=== PATIENT | male | born 2000 | race Caucasian/White ===

== ENCOUNTER 2025-04-20 09:10 | Emergency (ER) | payer OTHER, SELFPAY ==
--- NOTE | 2025-04-20 09:25 | ED_ITS ---
HPI - URI/Sore Throat General Chief Complaint: Upper Respiratory Infection Stated Complaint: Sore Throat Time Seen by Provider: 04/20/25 09:26 Source: patient and RN notes reviewed Mode of arrival: ambulatory Limitations: no limitations History of Present Illness HPI Narrative: 24-year-old male presents to the [facility] with complaints of a sore throat since Sunday, 2 days. Has been taking ibuprofen with no relief. Patient denies any other symptoms Onset (ago): day(s) (2) Treatments prior to arrival: ibuprofen Related Data Home Medications ?Medication ?Instructions ?Recorded ?Confirmed ?Last Taken ?Type No Home Medications 04/20/25 04/20/25 U nknown History Allergies Allergy/AdvReac Type Severity Reaction Status Date / Time No Known Allergies Allergy Verified 04/20/25 09:18 Review of Systems Review of Systems: All systems reviewed & are unremarkable except as noted in HPI and below Constitutional: Constitutional: Reports no additional constitutional complaints ENT: Reports as per HPI and Reports sore throat Cardiovascular: Cardiovascular: Reports no additional cardiovascular complaints, Denies chest pain and Denies dyspnea Respiratory: Respiratory: Reports no additional respiratory complaints, Denies chest congestion, Denies cough and Denies dyspnea Musculoskeletal: Musculoskeletal: Reports no additional musculoskeletal complaints Integumentary/Breasts: Skin/Breast: Reports system reviewed and no additional complaints, except as docu PMFSH Comments At the time of my signature, I reviewed and agree with the nursing past medical, surgical, social, and family history. There is no relevant family history pertinent to the patient complaint. Exam Const: General: cooperative, healthy appearing, comfortable, no acute distress, well developed, alert and well nourished Nutritional Appearance: well nourished Orientation/consciousness: patient oriented x3 Limitations: no limitations HENMT: Head: normal to inspection Ears: hearing grossly normal bilaterally, external ears normal, TM's normal bilaterally, EAC's normal, mastoids normal and no periauricular adenopathy Face/Nose/Sinus: Normal external nose present Face and sinus: normal facial exam Mouth: Yes Normal oral and palatal mucosa present, Yes lip normal, Yes tongue normal and Yes moist mucous membranes Throat: abnormal tonsil on the right erythema and hypertrophy 4+ and uvula laterally displaced Eyes: General: appearance normal, both eyes and all related structures Alignment and Position: alignment normal Neck: Neck: normal visual inspection, full ROM, no meningeal signs and lymphadenopathy (Right submandibular) Chest: Chest palpation & inspection: normal inspection of the chest Resp: Effort & Inspection: normal respiratory effort and able to speak in complete sentences Auscultation: clear to auscultation bilaterally, no crackles, no rales, no rhonchi and no wheezes Cardio: Rate: regular rate Skin: General skin exam: normal color and no rashes or lesions noted Neuro: General: patient oriented x3, gait normal, moves all extremities and no meningeal signs Cognition (Neuro): normal cognition Speech: normal speech Gait exam (Neuro): Normal gait present Extrem: General: normal to inspection, full ROM, capillary refill normal and normal gait Psych: Appearance: grossly normal and well kempt Mental Status: mental status grossly normal Speech and movement: Normal speech and movement present and Clear speech present Affect: normal affect Attitude: cooperative Course Course Level of Care: Express Care Visit Vital Signs Vital signs: Vital Signs Temperature 100.3 F H 04/20/25 09:27 Pulse Rate 105 H 04/20/25 09:27 Respiratory Rate 16 04/20/25 09:27 Blood Pressure 130/75 04/20/25 09:27 Pulse Oximetry 99 04/20/25 09:27 Oxygen Delivery Room Air 04/20/25 09:27 Temperature 100.3 F H 04/20/25 09:27 Pulse Rate 105 H 04/20/25 09:27 Respiratory Rate 16 04/20/25 09:27 Blood Pressure 130/75 04/20/25 09:27 Pulse Oximetry 99 04/20/25 09:27 Oxygen Delivery Room Air 04/20/25 09:27 Reviewed Transfer Transfered to: [place] Transportation: Other (POV) Transfer rationale: Patient with concern for a right peritonsillar abscess, sending for higher level of care Accepting physician: Dr. Bae MDM - URI/Sore Throat MDM Narrative Medical decision making narrative: Patient with a uvular shift, enlarged right tonsil. Patient is febrile 100.3, tachycardic at 1:05 a.m.. Patient with increasing pain and lymphadenopathy of the right side Strep test negative Sending for higher level of care Discharge instructions reviewed with patient, as well as provided in writing per nursing staff. The instructions also include specific and strict return/GO TO THE ER as well as f/u information. All questions have been answered, and the patient deny any further questions with discharge and discharge plan. Some parts of this dictation were generated by voice recognition software and may contain typographical and/or grammatical inaccuracies. Differential Diagnosis Differential diagnosis: Likely upper respiratory infection, sinusitis, pharyngitis and other (Strep, peritonsillar abscess, mono) Lab Data Labs: Lab Results 04/20/25 Range/Units 09:24 POC Grp A Strep Screen Negative (Negative) Reviewed Critical Care Time Critical Care Time Critical Care Time: No Discharge Plan Discharge Clinical Impression: Tonsillar abscess Patient Disposition: Acute Care Hospital Condition: Stable Instructions: Antibiotic Form Patient Language: Romanian Prescriptions: No Action No Home Medications Follow-up/Referrals: PHYSICIAN,REPULPING SUPERVISOR [Primary Care Provider, Internal Medicine]
[2025-04-20 09:27] VITALS: BP 130/75; PULSE 105; RESP 16; TEMP 37.9; O2SAT 99
[2025-04-20 09:50] LABS: EDSTREPNEGPOS1 Negative (Negative)
== END 2025-04-20 09:42 | disposition short-term general hospital (02) ==
PROVIDERS: Emergency Provider Nurse Practitioner
DX: J36 Peritonsillar abscess (principal)
CPT/HCPCS: 87081; 87880; 99213; G0463

== ENCOUNTER 2025-04-20 10:20 | Emergency (ER) | payer OTHER, SELFPAY ==
[2025-04-20] VITALS (10 sets, daily range): BP systolic 119–137; BP diastolic 76–78; PULSE 101–110; RESP 16–20; TEMP 37.4; O2SAT 97–100
--- NOTE | ~2025-04-20 | CT_ITS ---
EXAMINATION: CT soft tissue neck w con DATE: 04/20/2025 12:04 INDICATION: Tonsil mass. Assess for abscess. TECHNIQUE: Computed tomography (CT) of the neck was performed with 75 mL Omnipaque-350 intravenous contrast. Automated exposure control and iterative reconstruction technique were employed. The dose-length product was 480.24 mGy-cm. COMPARISON: None FINDINGS: There is relatively symmetric mild increased prominence of the bilateral parapharyngeal tonsils. No peripherally enhancing abscess. Mild enlargement of bilateral level 2 jugular chain lymph nodes measuring up to 1.3 similar on the right and 1.1 cm on the left and asymmetric mild enlargement of few right posterior cervical chain lymph nodes which remains within normal limits in size measuring up to 1.0 cm in maximal short axis diameter and which are likely reactive. Retropharyngeal soft tissues are unremarkable. Normal epiglottis and aryepiglottic folds. Orbits are normal. Mild mucosal thickening the bilateral ethmoid sinuses. Mastoid air cells and middle ear cavities are clear. Submandibular and parotid glands are normal and symmetric. Thyroid gland is unremarkable. No masses identified. The vasculature is patent and normal in caliber. Superior mediastinum is unremarkable. Lung apices are normal. Bones are unremarkable aside from likely positional mild straightening of the normal cervical lordosis. IMPRESSION: 1. Mild enlargement of the bilateral parapharyngeal tonsils which could be seen with tonsillitis. No discrete abscess. 2. Mild bilateral level 2 jugular chain and right posterior cervical chain lymphadenopathy which is likely reactive. Reviewed, dictated and finalized at location A. IMPRESSION: 1. Mild enlargement of the bilateral parapharyngeal tonsils which could be seen with tonsillitis. No discrete abscess. 2. Mild bilateral level 2 jugular chain and right posterior cervical chain lymp hadenopathy which is likely reactive.
[2025-04-20 11:28] LABS: Hematocrit 47.4 % (42.0-52.0); Hemoglobin 16.1 g/dL (14.0-18.0); Immature Granulocyte Percent A 0.5 % (0-0.5); Lymphocytes Absolute Auto 0.81 K/mm3 (0.9-3.2); Mean Corpuscular HGB Conc 34.0 g/dl (32-36); Mean Corpuscular Hemoglobin 32.3 pg (26-34); Mean Corpuscular Volume 95.2 fl (80-100); Nucleated Red Blood Cells Absolute Auto 0.000 K/mm3 (0.0-0.012); Nucleated Red Blood Cells Perc 0.0 % (0.0-0.2); Platelet Count Result 227 k/mm3 (150-375); Red Blood Count 4.98 M/mm3 (4.6-6.20); White Blood Count 11.8 K/mm3 (4.5-10.0)
--- NOTE | 2025-04-20 11:30 | ED_ITS ---
HPI - General Adult General Chief complaint: Recheck/Abnormal Lab/Rx Stated complaint: sent from urgent care; possible R tonsil abscess Time Seen by Provider: 04/20/25 11:04 History of Present Illness HPI narrative: 24-year-old male he lives in [place] no history presents ER complaining of right- sided throat pain for 3 days. Patient was seen in urgent care earlier today instructed to come to the ER for further evaluation over concerns or peritonsillar abscess. Patient denies fever. Denies shortness of breath or difficulty breathing. Endorses difficulty swallowing. Related Data Allergies Allergy/AdvReac Type Severity Reaction Status Date / Time No Known Allergies Allergy Verified 04/20/25 10:43 Review of Systems 2 Review of Systems: All systems reviewed & are unremarkable except as noted in HPI and below Exam 2 Const: General: healthy appearing, no acute distress, alert and ill appearing Nutritional Appearance: well nourished Orientation/consciousness: patient oriented x3 Limitations: no limitations HENMT: Head: normal to inspection Ears: external ears normal Mouth: Yes Normal oral and palatal mucosa present Other: Erythematous right tonsil with noted exudate Eyes: Conjunctivae: conjunctivae normal Pupils: Equal, round and reactive pupils present EOM: EOMs intact bilaterally Direct Ophthalmoscopy: no photophobia Resp: Effort & Inspection: normal respiratory effort Auscultation: clear to auscultation bilaterally Cardio: Rate: regular rate Rhythm: regular rhythm Skin: General skin exam: normal color Neuro: General: patient oriented x3, moves all extremities and CN's II-XI intact bilaterally Speech: normal speech Gait exam (Neuro): Normal gait present Extrem: General: normal to inspection Psych: Mental Status: mental status grossly normal Affect: normal affect Attitude: cooperative Course Vital Signs Vital signs: Vital Signs Temperature 37.4 C 04/20/25 10:40 Pulse Rate 101 H 04/20/25 10:40 Respiratory Rate 16 04/20/25 10:40 Blood Pressure 137/77 04/20/25 10:40 Pulse Oximetry 99 04/20/25 10:40 Oxygen Delivery Room Air 04/20/25 10:40 Temperature 37.4 C 04/20/25 10:40 Pulse Rate 110 H 04/20/25 11:28 Respiratory Rate 20 04/20/25 11:28 Blood Pressure 134/76 04/20/25 11:11 Pulse Oximetry 99 04/20/25 11:28 Oxygen Delivery Room Air 04/20/25 11:28 Medical Decision Making MDM Narrative Medical decision making narrative: In summary: 24-year-old male present to the ER complaining of a unilateral tonsillar swelling with exudate. Patient was seen at urgent care prior to arrival instructed to come to the ER for further evaluation. CT scan shows no evidence of peritonsillar abscess. WBC 11.8, CRP 2.7. Patient was given 1 dose of ceftriaxone in dexamethasone here in the ER. Differential diagnosis includes GAS, mono, viral illness, peritonsillar abscess. Findings are consistent with tonsillitis. Patient was discharged home with Augmentin and prednisone.. Vital Signs Vital Signs: Vital Signs Temperature 37.4 C 04/20/25 10:40 Pulse Rate 101 H 04/20/25 10:40 Respiratory Rate 16 04/20/25 10:40 Blood Pressure 137/77 04/20/25 10:40 Pulse Oximetry 99 04/20/25 10:40 Oxygen Delivery Room Air 04/20/25 10:40 Temperature 37.4 C 04/20/25 10:40 Pulse Rate 110 H 04/20/25 11:28 Respiratory Rate 20 04/20/25 11:28 Blood Pressure 134/76 04/20/25 11:11 Pulse Oximetry 99 04/20/25 11:28 Oxygen Delivery Room Air 04/20/25 11:28 Lab Data 04/20/25 11:20 04/20/25 11:34 Labs: Lab Results 04/20/25 04/20/25 Range/Units 11:20 11:34 WBC 11.8 H (4.5-10.0) K/mm3 RBC 4.98 (4.6-6.20) M/mm3 Hgb 16.1 (14.0-18.0) g/dL Hct 47.4 (42.0-52.0) % MCV 95.2 (80-100) fl MCH 32.3 (26-34) pg MCHC 34.0 (32-36) g/dl RDW 12.7 (11.5-14.5) % Plt Count 227 (150-375) k/mm3 MPV 8.4 (7.4-10.4) fl Immature Gran % (Auto) 0.5 (0-0.5) % Neut % (Auto) 80.7 H (45.5-73.1) % Lymph % (Auto) 6.9 L (18.3-44.2) % [place] % (Auto) 11.6 H (2.6-8.5) % Eos % (Auto) 0.0 (0-4.4) % Baso % (Auto) 0.3 (0.2-1.2) % Lymph # (Auto) 0.81 L (0.9-3.2) K/mm3 [place] # (Auto) 1.4 H (0.1-0.6) K/mm3 Eos # (Auto) 0.0 (0-0.3) K/mm3 Baso # (Auto) 0.0 (0.0-0.1) K/mm3 Abs Immat Gran (auto) 0.06 H (0.00-0.031) K/mm3 Absolute Neuts (auto) 9.5 H (1.3-6.7) K/mm3 Absolute Nucleated RBC 0.000 (0.0-0.012) K/mm3 Nucleated RBC % 0.0 (0.0-0.2) % ESR 7 (0-20) mm/hr Sodium 137 (137-145) mmol/L Potassium 4.2 (3.4-5.0) mmol/L Chloride 102 (98-107) mmol/L Carbon Dioxide 24 (22-30) mmol/L Anion Gap 11 (4-12) mmol/L BUN 7 L (9-20) mg/dL Creatinine 0.73 0.80 (0.7-1.3) mg/dL Estim Creat Clear Calc 141 129 ml/min Estimated GFR > 60 > 60 (59 - ) Glucose 117 H (65-110) mg/dL Lactic Acid 1.2 (0.7-2.0) mmol/L Calcium 9.9 (8.4-10.2) mg/dL Total Bilirubin 0.5 (0.2-1.3) mg/dL AST 24 (17-59) U/L ALT 17 (6-50) U/L Alkaline Phosphatase 93 (38-126) U/L C-Reactive Protein 2.7 H (<1.0) mg/dL Total Protein 7.9 (6.3-8.2) g/dL Albumin 4.6 (3.5-5.1) g/dL Discharge Plan Discharge Clinical Impression: Acute tonsillitis Patient Disposition: Home Condition: Stable Instructions: Antibiotic Form, Tonsillitis (ED) Patient Language: Persian Prescriptions: New amoxicillin-pot clavulanate 875-125 mg tablet 1 tablet PO Q12H Qty: 14 0RF prednisone 50 mg tablet 50 mg PO DAILY Qty: 5 0RF Follow-up/Referrals: PHYSICIAN,BENCH MOLDER [Primary Care Provider, Internal Medicine] Time of Disposition: 12:58
[2025-04-20 11:36] LABS: Estimated CRCL calculation 129 ml/min; Estimated Glomerular Filt Rate > 60
[2025-04-20 11:51] LABS: Alanine Aminotransferase 17 U/L (6-50); Albumin Level 4.6 g/dL (3.5-5.1); Alkaline Phosphatase 93 U/L (38-126); Anion Gap 11 mmol/L (4-12); Aspartate Amino Transferase 24 U/L (17-59); Bilirubin,Total 0.5 mg/dL (0.2-1.3); Blood Urea Nitrogen 7 mg/dL (9-20); Calcium 9.9 mg/dL (8.4-10.2); Carbon Dioxide 24 mmol/L (22-30); Chloride 102 mmol/L (98-107); Estimated CRCL calculation 141 ml/min; Estimated Glomerular Filt Rate > 60; Glucose 117 mg/dL (65-110); Potassium 4.2 mmol/L (3.4-5.0); Sodium 137 mmol/L (137-145); Total Protein 7.9 g/dL (6.3-8.2)
[2025-04-20] MEDS: dexAMETHasone SOD PHOS INJ 10 MG/ML 1 ML VIAL IV PUSH (12:15)
[2025-04-20] MEDS: cefTRIAXone 2 GM in SODIUM CHLORIDE 0.9% IV 100 ML 200 ML IVPB (12:16)
[2025-04-20 12:24] LABS: CRP 2.7 mg/dL (<1.0)
== END 2025-04-20 13:44 | disposition home or self-care (01) ==
PROVIDERS: Emergency Provider Nurse Practitioner Family
DX: J03.90 Acute tonsillitis, unspecified (principal)
CPT/HCPCS: 36415; 70491; 80053; 83605; 85025; 85652; 86140; 96365; 96375; 99284; J0696; J1100; Q9967